=== PATIENT | female | born 1955 | race Two or more races ===

== ENCOUNTER 2021-06-19 14:09 | Emergency (ER) | payer MEDICAID ==
[~2021-06-19] VITALS: Ht 170.2 cm; Wt 60.3 kg
--- NOTE | 2021-06-19 14:20 | NUR ---
Pending MD evaluation. Patient alert and oriented x4 with complaints of blister on left medial plantar foot pain 10/10. Patient with history of left breast cancer. BP was elevated BP-177/80, after 15 minutes re checked BP and went down to 151/80. Patient no complaints of dizziness, nausea/vomiting, not in any form of distress.
--- NOTE | 2021-06-19 14:30 | NUR ---
MD at bedside, medical screening exam in process.
[2021-06-19] MEDS ORDERED: IBUPROFEN 800 MG TABLET PO ONE (14:45)
[2021-06-19] MEDS ORDERED: IBUPROFEN 800 MG TABLET ONE (14:54)
[2021-06-19] MEDS ORDERED: NEOMY/BACITRA/POLYMYXIN B OINT UD PACKET TP ONE ×2 (15:45→15:57)
[2021-06-19] MEDS ORDERED: CEphaleXIN 500 MG CAPSULE PO ONE (15:45)
[2021-06-19] MEDS ORDERED: IBUP-1957 PO (15:47)
[2021-06-19] MEDS ORDERED: CEPH500C2 PO (15:47)
[2021-06-19] MEDS ORDERED: CEphaleXIN 500 MG CAPSULE ONE (15:58)
--- NOTE | 2021-06-19 16:38 | NUR ---
Gave pt RX and d/c instructions, pt verbalized understanding.
[2021-06-19 16:43] VITALS: BP 138/69
== END 2021-06-19 16:44 | disposition home or self-care (01) ==
LOC: ER 14:18
DX: S90.822A Blister (nonthermal), left foot, initial encounter (principal); X58.XXXA Exposure to other specified factors, initial encounter; Y93.41 Activity, dancing; Y92.89 Other specified places as the place of occurrence of the external cause; M79.672 Pain in left foot; C50.912 Malignant neoplasm of unspecified site of left female breast; Z79.899 Other long term (current) drug therapy
CPT/HCPCS: 73630; A4663